=== PATIENT | male | born 1975 | race Caucasian/White ===

== ENCOUNTER 2017-04-08 20:04 | Emergency (ER) | payer OTHER ==
[2017-04-08] MEDS ORDERED: KETAMINE 200 MG/20 ML VIAL IVP ONE ×4 (20:14→22:01)
--- NOTE | 2017-04-08 20:14 | EDPHY ---
H & P Stated Complaint: Poss dislocated Shoulder Time Seen by Provider: 04/08/17 20:08 HPI/ROS: CHIEF COMPLAINT: Right shoulder pain HISTORY OF PRESENT ILLNESS: The patient is a 41-year-old man who was walking down the stairs when he fell backwards onto his right shoulder. He complains of right shoulder and humerus pain. No neck pain. No back pain. No head injury or injuries to his other extremities. He was given 20 morphine, 300 fentanyl and 0.5 of Versed by EMS. He continues to complain of pain. REVIEW OF SYSTEMS: Constitutional: denies: chills, fever, recent illness, recent injury EENTM: denies: blurred vision, double vision, nose congestion Respiratory: denies: cough, shortness of breath Cardiac: denies: chest pain, irregular heart rate, lightheadedness, palpitations Gastrointestinal/Abdominal: denies: abdominal pain, diarrhea, nausea, vomiting, blood streaked stools Genitourinary: denies: dysuria, frequency, hematuria, pain Musculoskeletal: See HPI Skin: denies: lesions, rash, jaundice, bruising Neurological: denies: headache, numbness, paresthesia, tingling, dizziness, weakness Hematologic/Lymphatic: denies: blood clots, easy bleeding, easy bruising Immunologic/allergic: denies: HIV/AIDS, transplant EXAM: GENERAL: Well-appearing, well-nourished and in no acute distress. HEAD: Atraumatic, normocephalic. EYES: Pupils equal round and reactive to light, extraocular movements intact, sclera anicteric, conjunctiva are normal. ENT: TMs normal, nares patent, oropharynx clear without exudates. Moist mucous membranes. NECK: No midline tenderness, Normal range of motion, supple without lymphadenopathy or JVD. LUNGS: Breath sounds clear to auscultation bilaterally and equal. No wheezes rales or rhonchi. HEART: Regular rate and rhythm without murmurs, rubs or gallops. ABDOMEN: Soft, nontender, normoactive bowel sounds. No guarding, no rebound. No masses appreciated. BACK: No CVA tenderness, no spinal tenderness, step-offs or deformities EXTREMITIES: Right shoulder and humerus pain, possible step-off. No clavicular tenderness, normal pulses and sensation distally NEUROLOGICAL: Cranial nerves II through XII grossly intact. Normal speech, normal gait. 5/5 strength, normal movement in all extremities, normal sensation PSYCH: Normal mood, normal affect. SKIN: Warm, dry, normal turgor, no visible rashes or lesions. Source: Patient, EMS - Personal History Current Tetanus/Diphtheria Vaccine: Unsure Current Tetanus Diphtheria and Acellular Pertussis (TDAP): Unsure - Medical/Surgical History Hx Asthma: No Hx Chronic Respiratory Disease: No Hx Diabetes: No Hx Cardiac Disease: No Hx Renal Disease: No Hx Cirrhosis: No Hx Alcoholism: No Hx HIV/AIDS: No Hx Splenectomy or Spleen Trauma: No Other PMH: Left leg angioplasty. - Family History Significant Family History: No pertinent family hx - Social History Smoking Status: Light smoker Alcohol Use: None Constitutional: Initial Vital Signs Temperature (C) 36.8 C 04/08/17 20:08 Heart Rate 109 H 04/08/17 20:08 Respiratory Rate 21 H 04/08/17 20:08 Blood Pressure 154/98 H 04/08/17 20:08 O2 Sat (%) 95 04/08/17 20:08 O2 Delivery Mode [Post Room Air Procedure 4th] O2 Delivery Mode [Post Nasal Cannula Procedure 3rd] O2 Delivery Mode [Post Non-Rebreather Mask Procedure 2nd] O2 Delivery Mode [Post Non-Rebreather Mask Procedure 1st] O2 Delivery Mode [Procedural Non-Rebreather Mask 1st] O2 Delivery Mode [.Immediate Non-Rebreather Mask Pre-Procedure] O2 Delivery Mode Room Air O2 (L/minute) [Post Procedure 4 3rd] O2 (L/minute) [Post Procedure 15 2nd] O2 (L/minute) [Post Procedure 15 1st] O2 (L/minute) [Procedural 1st] 15 O2 (L/minute) [.Immediate Pre- 15 Procedure] O2 (L/minute) 15 Allergies/Adverse Reactions: No Known Allergies Allergy (Verified 07/25/11 13:12) Home Medications: Medication Instructions Recorded Vitamin B Complex [Vitamin B 1 each PO DAILY 12/08/11 Complex (OTC)] Hydrocodone/APAP 5/325 [[place] 1 - 2 tab PO Q4H PRN #10 tab 04/08/17 5/325 (RX)] Medical Decision Making - Diagnostics Imaging: I viewed and interpreted images myself Procedures: Procedure: Procedural sedation. Indication: Shoulder reduction. A pre-sedation evaluation was completed on the patient just prior to the procedure. Patient is an appropriate candidate for procedural sedation with a normal 3-3-2 rule assessment and a Mallampati airway score of class 2. The risks of the sedation were discussed including but not limited to dysrhythmia, need for airway intervention or general anesthesia, disability, ; and verbal consent obtained. A timeout was observed and patient's identity confirmed. The patient was sedated with ketamine and propofol. The patient was monitored with continuous pulse oximetry, capnography, and pulp plant supervisor. There were no complications and no significant hypoxemia. I remained at the bedside for the sedation. The total time I spent in the procedural sedation was 16 minutes. Procedure: Dislocation reduction. The shoulder was reduced in the usual fashion using the Gregory's technique and scapular manipulation without complications. Post reduction the patient's neurovascular exam is normal. Post reduction x-ray demonstrates reduction of the joint to the anatomic position. The procedure was performed by myself. Procedure: Splint placement. A shoulder sling was applied. After application of the splint I returned and re -examined the patient. The splint was adequately immobilizing the joint and distal to the splint the patient's circulation and sensation was intact. ED Course/Re-evaluation: The patient is doing much better. He is happy and laughing. He will follow up with Orthopedics. We discussed indications for returning. Differential Diagnosis: Partial list of the Differential diagnosis considered include but were not limited to; shoulder dislocation, AC separation, clavicle fracture and although unlikely based on the history and physical exam, I also considered neck injury, head injury. I discussed these differential diagnoses and the plan with the patient as well as the usual and expected course. The patient understands that the diagnosis is provisional and that in medicine we are not always correct and that further workup is often warranted. Usual and customary warnings were given. All of the patient's questions were answered. The patient was instructed to return to the emergency department should the symptoms at all worsen or return, otherwise to followup with the physician as we discussed. - Data Points Medications Given: Discontinued Medications Hydrocodone Bitart/Acetaminophen ([place] 5/325mg Prepack#6) 1 btl TAKEHOME EDNOW ONE Stop: 04/08/17 22:35 Last Admin: 04/08/17 22:38 Dose: 1 btl Sodium Chloride (Ns) 1,000 mls @ 0 mls/hr IV ONCE ONE PRN Reason: Wide Open Stop: 04/08/17 22:35 Last Admin: 04/08/17 20:50 Dose: 1,000 mls Ketamine HCl (Ketamine) 22.7 mg 0.2 mg/kg (22.7 mg) IVP EDNOW ONE Stop: 04/08/17 20:15 Last Admin: 04/08/17 20:22 Dose: 22.7 mg Ketamine HCl (Ketamine) 170 mg IVP EDNOW ONE Stop: 04/08/17 21:57 Last Admin: 04/08/17 21:59 Dose: Not Given Ketamine HCl (Ketamine) 170 mg IVP EDNOW ONE Stop: 04/08/17 22:00 Last Admin: 04/08/17 22:01 Dose: Not Given Ketamine HCl (Ketamine) 170 mg IVP EDNOW ONE Stop: 04/08/17 22:02 Last Admin: 04/08/17 22:04 Dose: 170 mg Propofol (Diprivan) 160 mg IVP EDNOW ONE Stop: 04/08/17 21:58 Last Admin: 04/08/17 21:58 Dose: 160 mg Departure - Departure Disposition: Home, Routine, Self-Care Clinical Impression: Dislocation of shoulder, right, closed Qualifiers: Encounter type: initial encounter Qualified Code(s): S43.004A - Unspecified dislocation of right shoulder joint, initial encounter Condition: Fair Instructions: Hydrocodone/Acetaminophen (By mouth), Shoulder Dislocation (ED) Referrals: Patient,NotPresent [Unknown] - As per Instructions Sachin Cook MD [Medical Doctor] - 3-4 days, if not improved Prescriptions: Hydrocodone/APAP 5/325 [[place] 5/325 (RX)] 1 - 2 tab PO Q4H PRN #10 tab PRN Reason: Pain, Moderate
[2017-04-08] MEDS ORDERED: KETAMINE 500 MG/10 ML VIAL ONE (20:53)
[2017-04-08] MEDS ORDERED: PROPOFOL 200 MG/20 ML VIAL ONE (20:53)
[2017-04-08] MEDS ORDERED: fentaNYL 100 MCG/2 ML INJ ONE (20:58)
[2017-04-08 21:49] VITALS: RESP 18
[2017-04-08] MEDS ORDERED: PROPOFOL 200 MG/20 ML VIAL IVP ONE (21:57)
[2017-04-08 22:26] VITALS: BP 117/74; PULSE 96; TEMP 97.7; O2SAT 98
[2017-04-08] MEDS ORDERED: HYDROCOD/APAP 5/325 PREPACK#6 BTL TAKEHOME ONE (22:34)
[2017-04-08] MEDS ORDERED: NS 1,000 ML IV ONE (22:34)
== END 2017-04-08 22:52 | disposition home or self-care (01) ==
LOC: EDUNIT#
PROC: 0RSJXZZ Reposition Right Shoulder Joint, External Approach (ICD-10-PCS; principal; 2017-04-08)
DX: S43.014A Anterior dislocation of right humerus, initial encounter (principal); F17.200 Nicotine dependence, unspecified, uncomplicated; E86.9 Volume depletion, unspecified; W10.8XXA Fall (on) (from) other stairs and steps, initial encounter; Y99.0 Civilian activity done for income or pay; Y93.01 Activity, walking, marching and hiking
CPT/HCPCS: J2704; J3010; L3980

== ENCOUNTER 2018-08-10 04:08 | Emergency (ER) | payer OTHER | END 2018-08-10 05:47 | disposition home or self-care (01) ==